=== PATIENT | female | born 1995 | race Caucasian/White ===

== ENCOUNTER → 2021-11-06 | Outpatient (CLI) | payer OTHER ==
[~2021-11-06] MED LIST: CEPH500 PO; CODACE30 PO; IBUP600 PO; Norco 5-325 Ta1 EACH PO; PENVK500 PO
[2021-11-08 02:07] LABS: CHLAMYDIA TRACHOMATIS, NAA Negative (Negative)
== END | disposition home or self-care (01) ==
LOC: LAB 15:30 → LAB SHORT 15:30
PROVIDERS: Nurse Practitioner Family
DX: Z11.3 Encounter for screening for infections with a predominantly sexual mode of transmission (principal)
CPT/HCPCS: 87491; 87591

== ENCOUNTER → 2022-02-06 | Outpatient (CLI) | payer OTHER | END | disposition home or self-care (01) | LOC: LAB SHORT 12:37 → LAB 12:37 | DX: N39.0 Urinary tract infection, site not specified (principal) | CPT/HCPCS: 87086 ==

== ENCOUNTER 2022-02-19 10:22 | Day surgery (SDC) | payer OTHER ==
[~2022-02-19] VITALS: Ht 170.2 cm; Wt 89.2 kg
--- NOTE | 2022-02-19 12:06 | NUR ---
Ambulatory in Day Surgery Surgical site prepped with 2% Chlorhexidine cloth wipe. History, Chart, Medications and Allergies reviewed before start of procedure. Pre-Op teaching done. Pt verbalizes understanding. Patient States Post-Procedure ride home has been arranged. Lungs clear T/O to Auscultation. Patient confirms NPO status and agrees with scheduled surgery.
--- NOTE | 2022-02-19 12:32 | NUR ---
02/19/22 1232 Guerita Lua ALL COUNTS CORRECT. IMPLANT SENT TO [facility] PER MD ORDERS.
--- NOTE | 2022-02-19 13:22 | NUR ---
PT AXOX4, CAN REPOSITION SELF IN BED, REQUESTING PO FLUIDS. PT HAS ONE INCISION SITE THAT IS COVERED WITH DERMABOND AND IT IS CDI.
--- NOTE | 2022-02-19 13:45 | NUR ---
Patient up to Ambulate independently with stand-by assist. Gait steady. Patient to bathroom, unmeasured void. Patient verbalizing desire to discharge home, family at bedside. Discharge instructions reviewed with patient. Patient verbalizes understanding. Copy given to patient to take home. Patient States Post-Procedure ride home has been arranged.
== END 2022-02-19 13:40 | disposition home or self-care (01) ==
LOC: ORSCMMR 10:22 → ORD 11:45 → ORSCMMR 11:45
PROVIDERS: Surgery
PROC: 0JPV0HZ Removal of Contraceptive Device from Upper Extremity Subcutaneous Tissue and Fascia, Open Approach (ICD-10-PCS; principal; 2022-02-19 11:45)
DX: Z30.46 Encounter for surveillance of implantable subdermal contraceptive (principal)
CPT/HCPCS: 88300; A9270; J0690; J1100; J2250; J2405; J2704; J2795; J3010; J7120

== ENCOUNTER 2023-07-25 20:32 | Emergency (ER) | payer OTHER ==
[~2023-07-25] VITALS: Ht 170.2 cm; Wt 86.2 kg
[2023-07-25 20:35] VITALS: BP 162/98
[2023-07-25] MEDS ORDERED: Diphth,Pertuss(Acell),Tet Vac 0.5 ML VIAL IM ONE (21:10)
[2023-07-25] MEDS ORDERED: HYDROcodone 5-APAP 325 TAB PO ONE (21:20)
[2023-07-25] MEDS ORDERED: Ibuprofen 400 MG Tab PO ONE (21:20)
== END 2023-07-25 21:30 | disposition home or self-care (01) ==
LOC: ER 20:32
DX: S61.213A Laceration without foreign body of left middle finger without damage to nail, initial encounter (principal); W27.8XXA Contact with other nonpowered hand tool, initial encounter
CPT/HCPCS: 64450; 90471; 90715; 99282-25; A9270